=== PATIENT | female | born 1950 | race Caucasian/White ===

== ENCOUNTER → 2016-09-10 | Outpatient (CLI) | payer OTHER | LOC: KOH-I 11:55 | DX: J32.8 Other chronic sinusitis (principal) | CPT/HCPCS: 70486 ==

== ENCOUNTER → 2020-08-07 | Outpatient (CLI) | payer MEDICARE, OTHER ==
[~2020-08-07] MED LIST: GABAPENTIN400 MG PO; OXYCODONE HCL30 MG PO; SYNTHROID88 MCG PO; ZANTAC300 MG PO
== END ==
LOC: KOH-I 07-31 10:30
DX: R94.5 Abnormal results of liver function studies (principal); K76.0 Fatty (change of) liver, not elsewhere classified
CPT/HCPCS: 76705

== ENCOUNTER → 2020-08-27 | Outpatient (CLI) | payer MEDICARE, OTHER | LOC: US 15:42 | DX: M79.661 Pain in right lower leg (principal) | CPT/HCPCS: 93971 ==

== ENCOUNTER → 2020-09-20 | Outpatient (CLI) | payer MEDICARE, OTHER ==
[2020-09-20 17:13] LABS: BUN/CREATININE RATIO 13 (0-10)
[2020-09-22 08:10] LABS: CREATININE, URINE 285.7 mg/dL (Not Estab.)
== END ==
LOC: LAB 16:19
PROVIDERS: Nurse Practitioner Family
DX: E11.59 Type 2 diabetes mellitus with other circulatory complications (principal)
CPT/HCPCS: 36415; 80053; 82043; 82570; 84439; 84443

== ENCOUNTER → 2021-12-30 | Outpatient (CLI) | payer MEDICARE, OTHER | LOC: EXRD 14:25 | DX: M79.661 Pain in right lower leg (principal) | CPT/HCPCS: 93971 ==